=== PATIENT | male | born 1990 | race Caucasian/White ===

== ENCOUNTER 2021-06-21 03:15 | Emergency (ER) | payer OTHER, SELFPAY ==
[2021-06-21 03:20] VITALS: BP 141/87; PULSE 93; RESP 16; TEMP 36.6; O2SAT 99
[2021-06-21] MEDS: FLUORESCEIN SOD 1 MG/STRIP EACH EYE (03:29)
[2021-06-21] MEDS: TETRACAINE HCL 0.5% OPHTH SOLN 4 ML BTL 1 DROP (03:29)
[2021-06-21] MEDS: CIPROFLOXACIN HCL 0.3% OP SOLN 2.5 ML BTL 1 DROP RIGHT EYE (03:49)
--- NOTE | 2021-06-21 04:19 | ED.EYEPROB ---
HPI - Eye Problem General Chief complaint: Eye Problems Stated complaint: Right eye pain x1 day Time Seen by Provider: 06/21/21 03:21 Source: patient and RN notes reviewed Mode of arrival: ambulatory Limitations: no limitations History of Present Illness HPI Narrative: 31-year-old male presents emergency department for evaluation of right eye pain. Patient states yesterday morning he took out his contact and has since had blurred vision and worsening pain of his right eye. Patient states he had his contacts in for a few weeks and he thinks they are only supposed to be in for a few days. Patient denies any other pain or injury. MD chief complaint: eye pain Related Data Allergies Allergy/AdvReac Type Severity Reaction Status Date / Time No Known Allergies Allergy Verified 06/21/21 03:17 Review of Systems Review of Systems: CONSTITUTIONAL: Denies fever, chills, or sweats. EYES: eye pain and blurred vision ENT: Denies rhinorrhea, congestion, sore throat, or otalgia. CARDIOVASCULAR: Denies chest pain, palpitations, or edema. RESPIRATORY: Denies cough or dyspnea. GASTROINTESTINAL: Denies abdominal pain, nausea, vomiting, or diarrhea. GENITOURINARY: Denies dysuria or hematuria. SKIN: Denies rash or itching. Exam Narrative: APPEARANCE: Well appearing, no pain, no distress, well-nourished. HEAD: normocephalic, atraumatic. EYES: Right-sided conjunctival injection. Cornea was observed with fluorescein and a Bartholomew lamp. Patient does have a corneal defect overlying the pupil. NOSE: Normal no drainage EARS:TMS clear with good light reflex. THROAT: Pharynx clear, no exudate. NECK: Supple. No adenopathy, no masses. RESPIRATORY: Airway patent, respirations nonlabored. Clear to auscultation bilaterally, no rales, rhonchi, wheezing. CARDIOVASCULAR: Regular rate and rhythm without murmurs rubs or gallops. ABDOMINAL: Soft, nontender, nondistended, normal bowel sounds MUSCULOSKELETAL: Moves all extremities. Strength/ROM intact, No edema, No calf tenderness. NEURO: Alert. Cranial nerves II through XII intact. Good gait. Good coordination SKIN: Warm, dry. Normal Color PSYCHIATRIC: Normal affect/mood. Course Course Emergency Course: Patient was treated with Cipro ophthalmic solution due to his history of contact use. Patient was updated on the importance of close follow-up with his curator herbarium. Patient was also told not to use his contacts until cleared by his curator herbarium. All questions and concerns were addressed. Patient was comfortable with the plan with discharge and close follow-up. Vital Signs Vital signs: Vital Signs Temperature 98 F 06/21/21 03:20 Pulse Rate 93 06/21/21 03:20 Respiratory Rate 16 06/21/21 03:20 Blood Pressure 141/87 H 06/21/21 03:20 Pulse Oximetry 99 06/21/21 03:20 Temperature 98 F 06/21/21 03:20 Pulse Rate 93 06/21/21 03:20 Respiratory Rate 16 06/21/21 03:20 Blood Pressure 141/87 H 06/21/21 03:20 Pulse Oximetry 99 06/21/21 03:20 MDM - Eye Problem Differential Diagnosis Differential diagnosis: Likely corneal abrasion and conjunctivitis Discharge Plan Discharge Clinical Impression: Corneal abrasion Patient Disposition: Home, Self-Care Condition: Stable Instructions: Antibiotic Form Additional Instructions: You need to have close follow-up with your curator herbarium. Do not wear your contacts until cleared by your curator herbarium. Failure to have follow-up could lead to permanent damage to your vision. If you have any worsening symptoms or if you have any questions or concerns then please call or return to the emergency department Prescriptions: New ciprofloxacin HCl 0.3 % drops See Rx Instructions .ROUTE .COMPLEX Qty: 5 RF: 0 Follow-up/Referrals: PHYSICIAN,[facility] [Primary Care Provider] -
== END 2021-06-21 03:57 | disposition home or self-care (01) ==
LOC: ANHED 03:40
PROVIDERS: Emergency Provider Emergency Medicine
DX: S05.01XA Injury of conjunctiva and corneal abrasion without foreign body, right eye, initial encounter (principal); X58.XXXA Exposure to other specified factors, initial encounter
CPT/HCPCS: 99283; A9270